=== PATIENT | male | born 1965 | race Caucasian/White ===

== ENCOUNTER 2018-09-18 16:09 | Emergency (ER) | payer MEDICARE, MEDICAID ==
[~2018-09-18] VITALS: Ht 177.8 cm; Wt 71.0 kg
[2018-09-18 16:39] VITALS: BP 112/69
== END 2018-09-18 18:31 | disposition home or self-care (01) ==
LOC: ER 16:12
DX: S70.01XA Contusion of right hip, initial encounter (principal); W01.0XXA Fall on same level from slipping, tripping and stumbling without subsequent striking against object, initial encounter; E11.9 Type 2 diabetes mellitus without complications; Y93.89 Activity, other specified; Y92.89 Other specified places as the place of occurrence of the external cause; Y99.8 Other external cause status
CPT/HCPCS: 73502; 99284

== ENCOUNTER 2023-08-05 08:56 | Emergency (ER) | payer MEDICARE, MEDICAID ==
[~2023-08-05] VITALS: Ht 172.7 cm; Wt 80.0 kg
[2023-08-05 08:58] VITALS: BP 123/80; PULSE 101; RESP 18; TEMP 97.8; O2SAT 99
[2023-08-05] MEDS ORDERED: DOXY-356 PO (10:42)
[2023-08-05] MEDS ORDERED: NAPR-56 PO (10:42)
== END 2023-08-05 10:57 | disposition home or self-care (01) ==
LOC: ER 08:57
DX: K04.7 Periapical abscess without sinus (principal)
CPT/HCPCS: 99283

== ENCOUNTER 2023-09-03 13:23 | Emergency (ER) | payer MEDICARE, MEDICAID ==
[~2023-09-03] VITALS: Ht 172.7 cm; Wt 80.0 kg
[~2023-09-03 13:23] MED LIST: NAPR-56 PO
[2023-09-03 13:26] VITALS: BP 139/67; PULSE 89; RESP 18; TEMP 97.3; O2SAT 100
[2023-09-03] MEDS ORDERED: AMOX-117 PO (17:58)
== END 2023-09-03 18:12 | disposition home or self-care (01) ==
LOC: ER 13:24
DX: J32.8 Other chronic sinusitis (principal); E11.9 Type 2 diabetes mellitus without complications; Z79.899 Other long term (current) drug therapy
CPT/HCPCS: 99283